=== PATIENT | male | born 1985 | race Caucasian/White ===

== ENCOUNTER 2017-04-17 16:45 | Emergency (ER) | payer BC ==
[~2017-04-17] VITALS: Ht 180.3 cm; Wt 82.0 kg
[2017-04-17 19:22] VITALS: BP 135/70
== END 2017-04-17 19:25 | disposition home or self-care (01) ==
LOC: ED 19:15
DX: R10.2 Pelvic and perineal pain (principal)
CPT/HCPCS: 81003; 87086; 99284